=== PATIENT | male | born 1980 | race Caucasian/White ===

== ENCOUNTER 2022-06-23 07:02 | Emergency (ER) | payer OTHER, SELFPAY ==
[2022-06-23 07:06] VITALS: BP 146/88; PULSE 74; RESP 18; TEMP 36.5; O2SAT 97; BMI 34.5
--- NOTE | 2022-06-23 07:16 | CRLHL7_ITS ---
For Patients: As a result of the Cures Act, medical imaging exams and procedure reports are released immediately into your electronic medical record. You may view this report before your referring provider. If you have questions, please contact your health care provider. INDICATION: FALL , pain olecranon INDICATION: Pain after fall. TECHNIQUE: Left elbow, three views. COMPARISON: None FINDINGS: Bones: Alignment is normal. No fractures or bone lesions. Joint spaces: Unremarkable. Soft tissues: Soft tissue swelling overlying the olecranon. IMPRESSION: No acute fracture or malalignment. Dictated by Vishal Mcdowell MD @ 06/23/2022 8:04:23 AM Dictated by: Vishal Mcdowell MD @ 06/23/2022 08:04:31 (Electronically Signed)
--- NOTE | 2022-06-23 07:17 | ED.UPPEXIN ---
HPI - Extremity Injury (Upper) General Chief Complaint: Extremity Pain/Injury, Upper <Tessa Burns MD - Last Filed: 06/24/22 15:54> Stated Complaint: fall/left arm injury <Tessa Burns MD - Last Filed: 06/24/22 15:54> Time Seen by Provider: 06/23/22 07:11 <Tessa Burns MD - Last Filed: 06/24/22 15:54> Source: patient <Tessa Burns MD - Last Filed: 06/24/22 15:54> Mode of arrival: ambulatory <Tessa Burns MD - Last Filed: 06/24/22 15:54> Limitations: no limitations <Tessa Burns MD - Last Filed: 06/24/22 15:54> History of Present Illness HPI narrative: 42-year-old male with no significant past medical history presents to the ED with his 2nd slip and fall on the ice in the past 3 weeks. With this fall, he slipped quickly landing on his left elbow, did hit the back of his head but does not endorse any loss of consciousness, current dizziness, vision change or neurological change. No headache. He states that 3 weeks ago he also fell on his elbow had noticed some swelling ?mushiness? of the elbow, had mild pain but did not elect to get this evaluated. He states that with this fall, the pain is worse and elbow feels more swollen. This happened just an hour ago. No prior history of fracture, surgery to this arm. Does not take any anticoagulants. He says that his fingers are numb but he can move them without difficulty. Has not taken any medicine to help with his pain. Does not endorse hand, wrist, shoulder or back pain. Denies any other injuries associated with the fall from standing height. Past medical history benign, no recent surgeries, no long-term health problems, no meds, no allergies socially, denies any intoxication or impairing substances. ROS is negative for other generalized, HEENT, musculoskeletal, skin, neurological, cardiovascular concerns except as described above. <Tessa Burns MD - Last Filed: 06/24/22 15:54> Related Data Home Medications: Home Medications Medication Instructions Recorded Confirmed No Known Home Medications 06/23/22 06/23/22 <Tessa Burns MD - Last Filed: 06/24/22 15:54> Allergies/Adverse Reactions: Allergies Allergy/AdvReac Type Severity Reaction Status Date / Time penicillin V Allergy Anaphylaxis Verified 06/23/22 07:09 <Tessa Burns MD - Last Filed: 06/24/22 15:54> [facility] Social History: Social History Smoking Status: Former smoker Do you use any of these nicotine containing products: Vaping Products Second hand tobacco smoke exposure: No How often do you have a drink containing alcohol: never How often do you have six or more drinks on one occasion: Never AUDIT-C Alcohol total score: 0 Non-prescribed substance use: denies use service: No <Tessa Burns MD - Last Filed: 06/24/22 15:54> Exam Const: Vital Signs, click to edit/add: Vital Signs - 24 hr 06/23/22 07:06 Temperature 97.7 F Pulse Rate [Pulse Oximeter] 74 Respiratory Rate 18 Blood Pressure [Ri ght Upper Arm] 146/88 H Pulse Oximetry 97 Oxygen Delivery Me thod Room Air <Tessa Burns MD - Last Filed: 06/24/22 15:54> Vital Signs, click to edit/add: Vital Signs - 24 hr 06/23/22 07:06 Temperature 97.7 F Pulse Rate [Pulse Oximeter] 74 Respiratory Rate 18 Blood Pressure [Ri ght Upper Arm] 146/88 H Pulse Oximetry 97 Oxygen Delivery Me thod Room Air <Gretta Valenzuela MD - Last Filed: 06/23/22 16:00> Documenting provider has reviewed patient's vital signs: yes <Tessa Bursn MD - Last Filed: 06/24/22 15:54> Common normals: no apparent distress <Tessa Burns MD - Last Filed: 06/24/22 15:54> General appearance: cooperative and well kempt <Tessa Burns MD - Last Filed: 06/24/22 15:54> Other: Good historian, appears uncomfortable. GCS 15 <Tessa Burns MD - Last Filed: 06/24/22 15:54> HENMT: Common normals: normocephalic, head/scalp atraumatic, hearing grossly normal bilaterally and TM's normal bilaterally <Tessa Burns MD - Last Filed: 06/24/22 15:54> Head and scalp: normocephalic and atraumatic <Tessa Burns MD - Last Filed: 06/24/22 15:54> Face and sinus: normal facial exam <Tessa Burns MD - Last Filed: 06/24/22 15:54> Tympanic membrane: TM's normal bilaterally <MD Sam Munoz Last Filed: 06/24/22 15:54> Mouth: oral and palatal mucosa normal <MD Sam Munoz Last Filed: 06/24/22 15:54> Throat: posterior oropharynx normal <MD Sam Munoz Last Filed: 06/24/22 15:54> Eye: Common normals: PERRL, EOMs intact bilaterally and conjunctivae normal <Tessa Burns MD - Last Filed: 06/24/22 15:54> Conjunctiva: conjunctiva(e) normal <MD Sam Munoz Last Filed: 06/24/22 15:54> Pupil: PERRL <Tessa Burns MD - Last Filed: 06/24/22 15:54> Neck & C-Spine: Common normals: full ROM and no lymphadenopathy <MD Sam Munoz Last Filed: 06/24/22 15:54> Cervical spine: cervical ROM normal; no cervical spine tenderness <MD Sam Munoz Last Filed: 06/24/22 15:54> Resp: Common normals: normal respiratory effort, no use of accessory muscles and clear to auscultation bilaterally <MD Sam Munoz Last Filed: 06/24/22 15:54> Auscultation: clear to auscultation bilaterally <MD Sam Munoz Last Filed: 06/24/22 15:54> Cardio: Common normals: regular rate, regular rhythm, no murmurs and peripheral pulses 2+ throughout <Tessa Burns MD - Last Filed: 06/24/22 15:54> Rate: regular rate <Tessa Burns MD - Last Filed: 06/24/22 15:54> Rhythm: regular rhythm <Tessa Burns MD - Last Filed: 06/24/22 15:54> Peripheral pulses: pulses 2+ throughout <Tessa Burns MD - Last Filed: 06/24/22 15:54> Extremity: Other: Guarding of left elbow noted. Left shoulder seems to have normal abduction and adduction wrist has normal flexion and extension and rotation. 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 He has normal sensation and capillary refill on palpation to the fingers, but reports paresthesias. Normal radial pulses. Palpation of the elbow reveals tenderness over the olecranon. There is no tenderness over the radial head or ulna inside the antecubital fossa. No bruising. <Tessa Burns MD - Last Filed: 06/24/22 15:54> Psych: Common normals: speech normal <Tessa Burns MD - Last Filed: 06/24/22 15:54> Appearance: well kempt <Tessa Burns MD - Last Filed: 06/24/22 15:54> Attitude: engaged <Tessa Burns MD - Last Filed: 06/24/22 15:54> Speech: normal speech <Tessa Burns MD - Last Filed: 06/24/22 15:54> Insight: insight good <MD Sam Munoz Last Filed: 06/24/22 15:54> Judgement: judgment good <MD Sam Munoz Last Filed: 06/24/22 15:54> Skin: Common normals: no rashes or lesions noted <MD Sam Munoz Last Filed: 06/24/22 15:54> General skin exam: no rashes or lesions noted <MD Sam Munoz Last Filed: 06/24/22 15:54> Course Vital Signs Vital signs: Initial Vital Signs Temperature 97.7 F 06/23/22 07:06 Temperature Source Temporal Artery Scan 06/23/22 07:06 Pulse Rate 74 06/23/22 07:06 Respiratory Rate 18 06/23/22 07:06 Blood Pressure 146/88 H 06/23/22 07:06 Blood Pressure Mean 107 06/23/22 07:06 Blood Pressure Position Sitting 06/23/22 07:06 Pulse Oximetry 97 06/23/22 07:06 Oxygen Delivery Method 06/23/22 07:06 Vital Signs Temperature 97.7 F 06/23/22 07:06 Pulse Rate 74 06/23/22 07:06 Respiratory Rate 18 06/23/22 07:06 Blood Pressure 146/88 H 06/23/22 07:06 Pulse Oximetry 97 06/23/22 07:06 Oxygen Delivery Method 06/23/22 07:06 Temperature 97.7 F 06/23/22 07:06 Pulse Rate 74 06/23/22 07:06 Respiratory Rate 18 06/23/22 07:06 Blood Pressure 146/88 H 06/23/22 07:06 Pulse Oximetry 97 06/23/22 07:06 Oxygen Delivery Method 06/23/22 07:06 <Tessa Burns MD - Last Filed: 06/24/22 15:54> Initial Vital Signs Temperature 97.7 F 06/23/22 07:06 Temperature Source Temporal Artery Scan 06/23/22 07:06 Pulse Rate 74 06/23/22 07:06 Respiratory Rate 18 06/23/22 07:06 Blood Pressure 146/88 H 06/23/22 07:06 Blood Pressure Mean 107 06/23/22 07:06 Blood Pressure Position Sitting 06/23/22 07:06 Pulse Oximetry 97 06/23/22 07:06 Oxygen Delivery Method 06/23/22 07:06 Vital Signs Temperature 97.7 F 06/23/22 07:06 Pulse Rate 74 06/23/22 07:06 Respiratory Rate 18 06/23/22 07:06 Blood Pressure 146/88 H 06/23/22 07:06 Pulse Oximetry 97 06/23/22 07:06 Oxygen Delivery Method 06/23/22 07:06 Temperature 97.7 F 06/23/22 07:06 Pulse Rate 74 06/23/22 07:06 Respiratory Rate 18 06/23/22 07:06 Blood Pressure 146/88 H 06/23/22 07:06 Pulse Oximetry 97 06/23/22 07:06 Oxygen Delivery Method 06/23/22 07:06 <Gretta Valenzuela MD - Last Filed: 06/23/22 16:00> MDM - Extremity Injury (Upper) MDM Narrative Medical decision making narrative: Strong suspicion for olecranon fracture. Will give oxycodone 5 mg p.o. x1 with ibuprofen 600 mg p.o. x1 and obtain x-ray. I do not think that there is vascular compromise, could be some sensory nerve injury. If there is an olecranon fracture, need to consider an ulnar nerve injury as well. Not appreciating any motor deficits at this time. Also likely to have some mild concussion symptoms from falling and hitting the back of his head, this will need to be discussed in reviewed prior to discharge. No signs of intracranial hemorrhage on initial exam. Will hand over care to my partner for x-ray interpretation and further management <Tessa Burns MD - Last Filed: 06/24/22 15:54> Strong suspicion for olecranon fracture. Will give oxycodone 5 mg p.o. x1 with ibuprofen 600 mg p.o. x1 and obtain x-ray. I do not think that there is vascular compromise, could be some sensory nerve injury. If there is an olecranon fracture, need to consider an ulnar nerve injury as well. Not appreciating any motor deficits at this time. Also likely to have some mild concussion symptoms from falling and hitting the back of his head, this will need to be discussed in reviewed prior to discharge. No signs of intracranial hemorrhage on initial exam. Will hand over care to my partner for x-ray interpretation and further management 0853 hours: Review of x-rays by myself show no fracture. Radiological over-read states no fracture. I did have the pleasure of speaking with Kelly from Ortho. At this time does not recommend further imaging as it would not change our treatment which currently is to place patient in a sling. I spoke to patient about doing [id number] exercises a few times daily and removing his arm from the sling. He did receive oxycodone here in the emergency room. However with no evidence of a fracture I feel hesitant about further narcotics. Would recommend either ibuprofen 800 mg every 8 hours or naproxen 400-500 mg every 12 hours as needed for discomfort. Recommend icing as well. 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 I will then have him limb limit use of his left arm until seen by Orthopedics. This for the remainder of the week. Return as needed for worsening symptoms. Dr. Burns noted significant challenges with exam. At this time patient is able to demonstrate flexion almost full possibly lacking 5-10 degrees. He is able to supinate and pronate. He has sensation of his fingers although he notes that subjectively all of his hand is tingling. He has good pulses distally. Good capillary refill. No evidence of erythema in the edema soft tissue swelling around the olecranon. No significant fluctuance in this area although exam again very challenging giving patient's discomfort. I suspect patient will follow-up with orthopedics and should he have ongoing challenges they will order MRI or CT or possibly physical therapy alone. We also spoke about olecranon bursitis during patient's stay here. [id number] exercises are demonstrated to patient. <Gretta Valenzuela MD - Last Filed: 06/23/22 16:00> Medical Records Attestation: I reviewed the patient's medical records. <Gretta aVlenzuela MD - Last Filed: 06/23/22 16:00> Imaging Data Left elbow: Attestation: I have reviewed the pertinent imaging results. <Gretta Valenzuela MD - Last Filed: 06/23/22 16:00> My impression: No obvious fracture <Gretta Valenzuela MD - Last Filed: 06/23/22 16:00> Radiologist's impression: Bones: Alignment is normal. No fractures or bone lesions. Joint spaces: Unremarkable. Soft tissues: Soft tissue swelling overlying the olecranon. IMPRESSION: No acute fracture or malalignment. <Gretta Valenzuela MD - Last Filed: 06/23/22 16:00> Discharge Plan Discharge Clinical Impression: Injury of elbow, left <Tessa Burns MD - Last Filed: 06/24/22 15:54> Patient Disposition: Home, Self-Care <Tessa Burns MD - Last Filed: 06/24/22 15:54> Condition: Improved <Tessa Burns MD - Last Filed: 06/24/22 15:54> Additional Instructions: 1. Sling until seen by Ortho. However, please remove your arm from the sling a few times daily and allow it to hang. 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 2. Call Ortho at [phone] arrange appointment and follow-up. 3. For pain use 1 of the following: Ibuprofen 800 mg every 8 hours with food OR Aleve or naproxen 4-500 mg (usually 2 over the counter tablets) every 12 hours. Take with food. Do this no more than 3 days. Ice to area of discomfort. Return to the emergency room as needed. <Tessa Burns MD - Last Filed: 06/24/22 15:54> Prescriptions: No Action No Known Home Medications <Tessa Burns MD - Last Filed: 06/24/22 15:54> Follow Up/Referrals: Provider,Not a Local [Primary Care Provider] - <Tsesa Burns MD - Last Filed: 06/24/22 15:54> Stand Alone Forms: MyHealth Info Instructions <Tessa Burns MD - Last Filed: 06/24/22 15:54>
[2022-06-23] MEDS: OXYCODONE 5 MG TABLET PO (07:24)
[2022-06-23] MEDS: IBUPROFEN 200 MG TABLET 600 MG PO (07:24)
== END 2022-06-23 08:56 | disposition home or self-care (01) ==
PROVIDERS: Emergency Provider Family Medicine
DX: M25.522 Pain in left elbow (principal); W00.9XXA Unspecified fall due to ice and snow, initial encounter
CPT/HCPCS: 73080; 99283; 99284; A9270